=== PATIENT | male | born 1995 | race Two or more races ===

== ENCOUNTER 2018-05-12 10:29 | Emergency (ER) | payer OTHER ==
[~2018-05-12] VITALS: Ht 177.8 cm; Wt 59.0 kg
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
[2018-05-12 11:05] VITALS: BP 135/80
[2018-05-12 11:07] VITALS: BP 135/80
== END 2018-05-12 11:07 ==
LOC: EDBD 10:29 → EMR 11:07
DX: Z02.89 Encounter for other administrative examinations (principal)
CPT/HCPCS: 99283